=== PATIENT | female | born 1990 | race Caucasian/White ===

== ENCOUNTER 2018-08-17 07:53 | Day surgery (SDC) | payer BC ==
[2018-09-13] MEDS ORDERED: SERT25 PO (14:25)
== END 2018-08-17 23:58 | disposition home or self-care (01) ==
LOC: MOI US 07:53
PROC: 0HBU3ZX Excision of Left Breast, Percutaneous Approach, Diagnostic (ICD-10-PCS; principal; 2018-08-17)
DX: D24.2 Benign neoplasm of left breast (principal)
CPT/HCPCS: 19083; 77066; 88305; A4648; G0279

== ENCOUNTER 2018-09-18 06:04 | Day surgery (SDC) | payer BC ==
[~2018-09-18] VITALS: Ht 172.7 cm; Wt 64.0 kg
[~2018-09-18 06:04] MED LIST: SERT25 PO
--- NOTE | 2018-09-18 07:01 | NUR ---
Ambulatory in Day Surgery History, Chart, Medications and Allergies reviewed before start of procedure.Patient confirms NPO status and agrees with scheduled surgery. Patient reports completing Chlorhexadine shower X2 prior to admission to hospital.Surgical site prepped with 2% Chlorhexidine cloth wipe.
--- NOTE | 2018-09-18 09:55 | NUR ---
PT REPORT FROM JOHNNY RN/PACU. PT AWAKE, ORIENTED, WITH DRESSING TO LEFT BREAST CDI T/O RECOVERY. PT WAS ABLE TO EAT AND DRINK AND TOLERATE 2 PAIN PILLS WITHOUT DIFFICULTY. Discharge instructions reviewed with patient. Patient verbalizes understanding. Copy given to patient to take home. Patient States Post-Procedure ride home has been arranged. Discharged via wheelchair to private car for ride home. ALL BELONINGS RETURNED TO PATIENT.
== END 2018-09-18 22:41 | disposition home or self-care (01) ==
LOC: ORSCMMR 06:04 → ORD 07:30 → ORSCMMR 22:41
PROVIDERS: Surgery
PROC: 0HBU0ZX Excision of Left Breast, Open Approach, Diagnostic (ICD-10-PCS; principal; 2018-09-18 07:30)
DX: D24.2 Benign neoplasm of left breast (principal)
CPT/HCPCS: 88305; J0690; J2250; J3010; J7120